=== PATIENT | female | born 1965 | race Caucasian/White ===

== ENCOUNTER → 2019-09-29 | Outpatient (CLI) | payer OTHER ==
[2019-09-29 16:59] LABS: Influenza A Negative (NEGATIVE); Influenza B Negative (NEGATIVE)
== END ==
LOC: LAB 15:51 → LAB SHORT 15:51
PROVIDERS: Nurse Practitioner Family
DX: J02.9 Acute pharyngitis, unspecified (principal); R50.9 Fever, unspecified
CPT/HCPCS: 87804

== ENCOUNTER 2019-12-22 07:45 | Observation (INO) | payer OTHER ==
[~2019-12-22] VITALS: Ht 160 cm; Wt 79.5 kg
[2019-12-22 08:52] LABS: BASOPHILS ABSOLUTE AUTO 0.07 K/mm3 (0.00-0.23); BASOPHILS PERCENT AUTO 1 % (0-2); EOSINOPHILS PERCENT AUTO 4 % (0-6); Hematocrit 41.3 % (33.0-51.0); Hemoglobin 13.1 g/dL (11.5-16.0); IMMATURE GRAN ABSOLUTE AUTO 0.02 K/mm3 (0.00-0.10); IMMATURE GRAN PERCENT AUTO 0 % (0-1); LYMPHOCYTES ABSOLUTE AUTO 2.31 K/mm3 (0.84-5.20); LYMPHOCYTES PERCENT AUTO 25 % (21-46); MONOCYTES ABSOLUTE AUTO 0.61 K/mm3 (0.16-1.47); MONOCYTES PERCENT AUTO 7 % (4-13); Mean Corpuscular HGB 25.8 pg (26.0-34.0); Mean Corpuscular HGB Conc 31.7 g/dL (31.5-36.5); Mean Corpuscular Volume 82 fL (80-100); Mean Platelet Volume 10.7 fL (9.1-12.4); NEUTROPHILS ABSOLUTE AUTO 5.87 K/mm3 (1.96-9.15); NEUTROPHILS PERCENT AUTO 63 % (41-73); Platelet Count 258 K/mm3 (150-400); RDW Coefficient Variation 13.7 % (11.7-14.2); RDW Standard Deviation 40.2 fL (35.1-46.3); Red Blood Cell Count 5.07 M/mm3 (3.80-5.20); White Blood Cell Count 9.28 K/mm3 (4.00-11.30)
[2019-12-22 09:13] LABS: Troponin I <0.015 ng/mL (0.000-0.040)
[2019-12-22 09:14] LABS: Alanine Aminotransfer (ALT/SGP 41 U/L (12-78); Albumin, Blood 3.6 g/dL (3.4-5.0); Albumin/Globulin Ratio 0.8 (0.8-1.8); Alk Phos 82 U/L (50-136); Anion Gap 5 mmol/L (6-16); Aspartate Aminotrans (AST/SGOT 24 U/L (12-37); Bilirubin, Total 0.4 mg/dL (0.1-1.0); Blood Urea Nitrogen 21 mg/dL (8-24); Bun/Creatinine Ratio 39.3 (12.0-20.0); CO2, Blood 28 mmol/L (21-32); Chloride, Blood 105 mmol/L (98-108); Creatinine, Blood 0.53 mg/dL (0.40-1.00); Globulin, Blood 4.3 g/dL (2.2-4.0); Glomerular Filtration Rate >60 (60-); Glucose, Blood 145 mg/dL (70-99); Potassium, Blood 3.7 mmol/L (3.5-5.5); Sodium, Blood 138 mmol/L (136-145); Total Protein, Blood 7.9 g/dL (6.4-8.2)
[2019-12-22] MEDS ORDERED: METF500 PO (09:58)
[2019-12-22] MEDS ORDERED: Inderal40 MG PO (09:59)
[2019-12-22] MEDS ORDERED: IMIP25 PO (09:59)
[2019-12-22] MEDS ORDERED: TOPI25 PO (09:59)
[2019-12-22] MEDS ORDERED: NAPR500 PO (10:00)
[2019-12-22] MEDS ORDERED: CYCL10 PO (10:00)
[2019-12-22 16:34] LABS: CPK Creatine Kinase 45 U/L (26-193); Troponin I <0.015 ng/mL (0.000-0.040)
[2019-12-22 16:41] LABS: Creatine Kinase MB <1.0 ng/mL (0.0-3.6); Creatine Kinase MB Index Unable to Calculate (0.0-4.0)
--- NOTE | 2019-12-22 17:21 | NUR ---
PATIENT A/O X4 UP INDEPENDENTLY IN ROOM. CONTINUES TO HAVE CP, BUT HAS IMPROVED. ACHS BLOOD SUGARS, NO COVERAGE NEEDED THIS SHIFT. SKIN INTACT. 20G IV TO R AC WNL AND SL. SR ON TELE. VSS, ON RA.
[2019-12-23 00:54] LABS: Anion Gap 5 mmol/L (6-16); Blood Urea Nitrogen 20 mg/dL (8-24); Bun/Creatinine Ratio 35.7 (12.0-20.0); CHOL/HDL RATIO 7.7; CO2, Blood 30 mmol/L (21-32); Calcium, Blood 8.9 mg/dL (8.5-10.1); Chloride, Blood 105 mmol/L (98-108); Cholesterol 177 mg/dL (50-200); Creatinine, Blood 0.56 mg/dL (0.40-1.00); Glomerular Filtration Rate >60 (60-); Glucose, Blood 149 mg/dL (70-99); HDL Cholesterol 23 mg/dL (>39); LDL/HDL RATIO Unable to Calculate; Low Density Lipoprotein Chol Unable to Calculate mg/dL (0-110); Potassium, Blood 3.6 mmol/L (3.5-5.5); Sodium, Blood 140 mmol/L (136-145); Triglycerides 410 mg/dL (30-160); Very Low Density Lipoprot Chol Unable to Calculate mg/dL (6-32)
--- NOTE | 2019-12-23 04:06 | NUR ---
SHIFT SUMMARY: VSS. TEMP 99.3. A/OX4. COMMUNICATES NEEDS. REPORTED CHEST PAIN X1 TONIGHT, POINTING DIRECTLY OVER L CHEST, MIDCLAVICULAR, ABOVE THE LEFT BREAST. DESCRIBED IT MUCH MORE MILD THAN IT WAS DURING DAYTIME WHEN EKG WAS PERFORMED. NITRO ADMINISTERED X 1 TAB. PT REPORTED RELIEF OF CHEST PAIN. HAS RESTED QUIETLY THROUGH THE REST OF THE NIGHT SO FAR WITH NO FURTHER REPORTS OF CHEST PAIN. INDEPENDENT IN ROOM. WILL CONT TO MONITOR.
[2019-12-23] MEDS ORDERED: ACET325 PO (10:46)
[2019-12-23] MEDS ORDERED: ATOR20 PO (10:47)
[2019-12-23] MEDS ORDERED: ASPI81CH PO (10:47)
[2019-12-23] MEDS ORDERED: NITR.4SL SL (10:48)
[2019-12-23] MEDS ORDERED: Isosorbide Mono30 MG PO (10:49)
--- NOTE | 2019-12-23 12:05 | NUR ---
D/C NOTE: EDUCATION/ INSTRUCTIONS GONE OVER WITH PT. PT DENIES ANY ADDITIONAL QUESTIONS AT THIS TIME. IV AND TELE DC'D. PT CALLED DAUGHTER FOR RIDE. PT TAKEN TO DAUGHTER VIA W/C. DISCHARGED AT 1155.
--- NOTE | 2019-12-23 12:44 | NUR ---
Patient is sitting on EOB and alert. Patient immediately tells me that she is in the DC process. Patient goes on to talk about how patient and her recently moved to the area from [place] and about the challenges this has created. Patient explains about her religion tradition and about her family unit complications. Patient speaks of the fears she has she returns home. I listen empathically, reinforce helpful attitudes and practices and provided pastoral branch credit counselor and prayer. Patient responds well and shows signs of reduced stress and improved peace. I will continue to remain available to patient and family.
== END 2019-12-23 11:57 | disposition home or self-care (01) ==
LOC: ER 07:45 → MEDS 07:46
PROVIDERS: Emergency Medicine; ADMIT Internal Medicine
DX: R07.89 Other chest pain (principal); I10 Essential (primary) hypertension; E11.9 Type 2 diabetes mellitus without complications; E78.5 Hyperlipidemia, unspecified; Z82.49 Family history of ischemic heart disease and other diseases of the circulatory system; Z79.82 Long term (current) use of aspirin; Z79.84 Long term (current) use of oral hypoglycemic drugs; Z79.899 Other long term (current) drug therapy; F17.210 Nicotine dependence, cigarettes, uncomplicated; Z88.5 Allergy status to narcotic agent; Z91.040 Latex allergy status
CPT/HCPCS: 36415; 71045; 80048; 80053; 80061; 82550; 82553; 82947; 84484; 85025; 93005; 93010; 96372; 99285-25; A9270-GY; G0378; J1644

== ENCOUNTER → 2022-01-13 | Outpatient (CLI) | payer OTHER ==
[~2022-01-13] MED LIST: ACET325 PO; ASPI81CH PO; ATOR20 PO; CYCL10 PO; IMIP25 PO; Inderal40 MG PO; Isosorbide Mono30 MG PO; METF500 PO; NAPR500 PO; NITR.4SL SL; TOPI25 PO
== END | disposition home or self-care (01) ==
LOC: LAB 14:52 → LAB SHORT 14:52
DX: N39.0 Urinary tract infection, site not specified (principal)
CPT/HCPCS: 87077; 87086; 87186

== ENCOUNTER 2025-06-03 01:04 | Emergency (ER) | payer BC ==
[~2025-06-03] VITALS: Ht 160 cm; Wt 77.6 kg
[2025-06-03 01:48] LABS: BASOPHILS ABSOLUTE AUTO 0.09 K/mm3 (0.00-0.23); BASOPHILS PERCENT AUTO 1 % (0-2); EOSINOPHILS ABSOLUTE AUTO 0.48 K/mm3 (0.00-0.68); EOSINOPHILS PERCENT AUTO 5 % (0-6); Hematocrit 37.2 % (33.0-51.0); Hemoglobin 12.2 g/dL (11.5-16.0); IMMATURE GRAN ABSOLUTE AUTO 0.03 K/mm3 (0.00-0.10); IMMATURE GRAN PERCENT AUTO 0 % (0-1); LYMPHOCYTES ABSOLUTE AUTO 3.31 K/mm3 (0.84-5.20); LYMPHOCYTES PERCENT AUTO 33 % (21-46); MONOCYTES ABSOLUTE AUTO 0.53 K/mm3 (0.16-1.47); MONOCYTES PERCENT AUTO 5 % (4-13); Mean Corpuscular HGB Conc 32.8 g/dL (31.5-36.5); Mean Corpuscular Volume 81 fL (80-100); NEUTROPHILS ABSOLUTE AUTO 5.67 K/mm3 (1.96-9.15); NEUTROPHILS PERCENT AUTO 56 % (41-73); NRBC ABSOLUTE 0.00 K/mm3 (0.00-0.02); NRBC Auto 0.0 /100 WBC (0.0-0.2); Platelet Count 262 K/mm3 (150-400); RDW Coefficient Variation 13.2 % (11.7-14.2); RDW Standard Deviation 38.9 fL (35.1-46.3)
[2025-06-03 02:00] VITALS: BP 175/74
[2025-06-03 02:06] LABS: Alanine Aminotransfer (ALT/SGP 44.0 U/L (12-78); Albumin, Blood 3.6 g/dL (3.4-5.0); Albumin/Globulin Ratio 0.9 (0.8-1.8); Anion Gap 5.0 mmol/L (3-11); Aspartate Aminotrans (AST/SGOT 30.0 U/L (12-37); Bilirubin, Total 0.4 mg/dL (0.1-1.0); Blood Urea Nitrogen 16.0 mg/dL (8-24); CO2, Blood 31.0 mmol/L (21-32); Calcium, Blood 9.1 mg/dL (8.5-10.1); Chloride, Blood 105.0 mmol/L (98-108); Creatinine, Blood 0.61 mg/dL (0.40-1.00); Globulin, Blood 4.1 g/dL (2.2-4.0); Glucose, Blood 190.0 mg/dL (70-99); Potassium, Blood 3.5 mmol/L (3.5-5.5); Sodium, Blood 137.0 mmol/L (136-145); Total Protein, Blood 7.7 g/dL (6.4-8.2)
== END 2025-06-04 02:35 | disposition home or self-care (01) ==
LOC: ER 01:04
PROVIDERS: Student in an Organized Health Care Education/Training Program
DX: I10 Essential (primary) hypertension (principal); R07.89 Other chest pain; E11.9 Type 2 diabetes mellitus without complications; E78.5 Hyperlipidemia, unspecified; J45.909 Unspecified asthma, uncomplicated; Z79.84 Long term (current) use of oral hypoglycemic drugs; Z79.82 Long term (current) use of aspirin; Z79.899 Other long term (current) drug therapy; Z88.5 Allergy status to narcotic agent; Z91.040 Latex allergy status
CPT/HCPCS: 71045; 80053; 83690; 84484; 85025; 93005; 93010; 99285-25